=== PATIENT | female | born 1975 | race American Indian/Alaskan Native ===

== ENCOUNTER 2019-10-05 22:04 | Emergency (ER) | payer OTHER ==
[~2019-10-05] VITALS: Ht 154.9 cm; Wt 56.7 kg
[2019-10-06 02:23] VITALS: BP 103/67
[2019-10-06] MEDS ORDERED: TRIAMCINOLONE 40MG/ML 1ML VIAL IX ONE (02:30)
[2019-10-06] MEDS ORDERED: LORazepam 2MG/ML-1ML VIAL IM ONE (02:30)
[2019-10-06] MEDS ORDERED: KETOROLAC TROMETH 60MG/2ML VIAL IM ONE (03:00)
== END 2019-10-06 03:35 | disposition home or self-care (01) ==
LOC: ER 22:08
DX: G24.3 Spasmodic torticollis (principal); M13.811 Other specified arthritis, right shoulder
CPT/HCPCS: 20552; 36415; 72040; 73030; 84443; 96372; 99284; J1885; J2060; J3301

== ENCOUNTER → 2020-07-07 | Emergency (ER) | payer OTHER ==
[~2020-07-07] VITALS: Ht 154.9 cm; Wt 56.7 kg
[2020-07-07 21:00] VITALS: BP 110/71
== END | disposition home or self-care (01) ==
LOC: ER 18:33
DX: S93.401A Sprain of unspecified ligament of right ankle, initial encounter (principal); W19.XXXA Unspecified fall, initial encounter; Y93.89 Activity, other specified; Y92.89 Other specified places as the place of occurrence of the external cause; Y99.8 Other external cause status
CPT/HCPCS: 73600